=== PATIENT | female | born 1970 | race Caucasian/White ===

== ENCOUNTER 2021-06-20 14:33 | Emergency (ER) | payer BC ==
[~2021-06-20] VITALS: Ht 154.9 cm; Wt 84.0 kg
[2021-06-20 14:50] VITALS: BP 129/83
== END 2021-06-20 21:03 | disposition left against medical advice (07) ==
LOC: ER 14:33
DX: R10.2 Pelvic and perineal pain (principal); Z53.21 Procedure and treatment not carried out due to patient leaving prior to being seen by health care provider
CPT/HCPCS: 76830; 76856